=== PATIENT | male | born 1940 | race Caucasian/White ===

== ENCOUNTER 2016-11-23 11:08 | Inpatient (IN) | payer OTHER ==
[~2016-11-23] VITALS: Ht 177.8 cm; Wt 79.4 kg
[~2016-11-23 11:08] MED LIST: BACITRACIN ZINC 15 GM TOPICAL OINTMENT TP ONE; CEFAZOLIN 2 GM IVPB PREMIX 50 ML IV ONE; LIDOCAINE/EPI 1% 1:100000 20 ML VIAL INJ ONE; LR 1,000 ML IV.SOLN IV ONE; MIDAZOLAM HCL 5 MG/5 ML VIAL IVP ONE; ONDANSETRON HCL 4 MG/2 ML VIAL IVP ONE; SEVOFLURANE 15 MIN GAS INH ONE; fentaNYL CITRATE/PF 100 MCG/2 ML AMP IVP ONE
[2016-11-23 12:45] VITALS: BP_SYST 159
[2016-11-23 13:08] VITALS: BP_SYST 159
[2016-11-23] MEDS ORDERED: PRO20 PO (13:25)
[2016-11-23] MEDS ORDERED: FLU VACC QS 2017-18(36MOS+)/PF 0.5 ML/SYR SYRINGE I.M. PRN (13:30)
[2016-11-23] MEDS ORDERED: ONDANSETRON HCL 4 MG/2 ML VIAL IVP PRN (14:15)
[2016-11-23] MEDS ORDERED: HYDROcodone/ACETAMIN 5-325 MG TAB (NORCO/ VICODIN) PO PRN (14:15)
[2016-11-23] MEDS ORDERED: FLUoxetine HCL 20 MG CAPSULE (PROzac) PO SCH (14:15)
[2016-11-23] MEDS ORDERED: ACETAMINOPHEN 325 MG TABLET PO PRN (14:15)
[2016-11-23] MEDS ORDERED: MORPHINE 2 MG/ML INJ. SYRINGE IVP PRN (14:15)
[2016-11-23] MEDS: 0.45% NACL 1,000 ML IV SCH (15:40)
[2016-11-23 15:59] LABS: CKMB RELATIVE INDEX 1.9 (0.0-2.9); CREATINE KINASE MB 6.1 ng/mL (0-3.6)
[2016-11-23 16:45] VITALS: BP_SYST 146
[2016-11-23] MEDS ORDERED: BACITRACIN 1 GM OINT TP ONE (17:00)
[2016-11-23 19:57] VITALS: BP_SYST 131
[2016-11-24 02:01] VITALS: BP_SYST 113
[2016-11-24 03:35] VITALS: BP_SYST 112
[2016-11-24] MEDS: 0.45% NACL 1,000 ML IV SCH (04:38)
[2016-11-24 06:30] LABS: BILIRUBIN,URINE NEGATIVE (NEGATIVE); BLOOD, URINE NEGATIVE (NEGATIVE); CLARITY/URINE CLEAR (CLEAR); COLOR,URINE YELLOW (YELLOW); GLUCOSE,URINE NEGATIVE (NEGATIVE); KETONES,URINE NEGATIVE (NEGATIVE); LEUKOCYTE ESTERASE ,URINE NEGATIVE (NEGATIVE); NITRITE, URINE NEGATIVE (NEGATIVE); PROTEIN URINE NEGATIVE (NEGATIVE); UROBILINOGEN,URINE 0.2 (0.2-1.0)
[2016-11-24] MEDS ORDERED: LR 1,000 ML IV SCH (07:42)
[2016-11-24] MEDS ORDERED: HYDROmorphone 2 MG/ML VIAL IVP PRN ×2 (07:45)
[2016-11-24] MEDS ORDERED: HYDROmorphone 1 MG INJ. 1 MG/ML AMPUL IVP PRN (07:45)
[2016-11-24] MEDS ORDERED: ONDANSETRON HCL 4 MG/2 ML VIAL IVP PRN (07:45)
[2016-11-24] MEDS ORDERED: POLYMYXIN 500,000/BACIT.10,000 UNITS in NS IRR 1 L IR ONE (07:53)
[2016-11-24 08:00] LABS: EOSINOPHILS # (AUTO) 0.2 K/uL (0.0-0.4); EOSINOPHILS % (AUTO) 2.9 % (0.0-4.0)
[2016-11-24 08:27] LABS: BASOPHILS % (AUTO) 0.4 % (0.0-2.0); HEMATOCRIT 42.8 % (36-54); HEMOGLOBIN 14.1 g/dL (14.0-18.0); LYMPHOCYTES % (AUTO) 15.4 % (20.5-51.5); MEAN CORPUSCULAR HEMOGLOBIN 29 pg (27-31); MEAN CORPUSCULAR HGB CONC 33 % (32-36); MEAN CORPUSCULAR VOLUME 87 fL (79.0-98.0); MONOCYTES # (AUTO) 0.6 K/uL (0.0-1.0); MONOCYTES % (AUTO) 8.8 % (1.7-9.3); NEUTROPHILS # (AUTO) 4.5 K/uL (1.8-7.7); NEUTROPHILS % (AUTO) 72.5 % (40.0-70.0); PLATELET COUNT (AUTO) 154 K/uL (130-430); RED CELL DISTRIBUTION WIDTH 13.1 % (9.0-15.0); WHITE BLOOD COUNT (AUTO) 6.3 K/uL (4.8-10.8)
[2016-11-24 08:42] LABS: ANION GAP 9 (5-15); CALCIUM 8.7 mg/dL (8.4-11.0); CHLORIDE 104 mmol/L (98-107); CREATININE 1.09 mg/dL (0.55-1.30); GLUCOSE 94 mg/dL (70-99); POTASSIUM 4.1 mmol/L (3.5-5.1); SODIUM SERUM 142 mmol/L (136-145); UREA NITROGEN, BLOOD 16 mg/dL (8-21)
[2016-11-24] MEDS ORDERED: ACETAMINOPHEN/CODEINE 300 MG-30 MG TABLET PO PRN (08:45)
[2016-11-24 08:49] LABS: ALANINE AMINOTRANSFERASE 31 U/L (12-78); ALBUMIN 3.6 g/dL (3.4-4.8); ASPARTATE AMINOTRANSFERASE 29 U/L (10-37); TOTAL BILIRUBIN 0.7 mg/dL (0.0-1.0)
[2016-11-24] MEDS ORDERED: ENOXAPARIN SODIUM 40 MG/0.4 ML SYRINGE SUBCUT SCH (09:00)
[2016-11-24] MEDS ORDERED: HYDROmorphone 1 MG INJ. 1 MG/ML AMPUL ONE (09:28)
[2016-11-24 12:40] VITALS: BP_SYST 115
[2016-11-24] MEDS ORDERED: AMOXICILLIN/CLAVULANATE POTASSIUM 500 MG TABLET PO SCH (14:00)
[2016-11-24 16:30] VITALS: BP_SYST 118
[2016-11-24] MEDS: AMPICILLIN SODIUM/SULBACTAM NA 3 GM in NS 100 ML IV SCH ×2 (17:27→23:53)
[2016-11-24 19:37] VITALS: BP_SYST 117
[2016-11-25 00:23] VITALS: BP_SYST 136
[2016-11-25] MEDS: AMPICILLIN SODIUM/SULBACTAM NA 3 GM in NS 100 ML IV SCH (05:12)
[2016-11-25 05:45] VITALS: BP_SYST 132
[2016-11-25 07:11] LABS: LYMPHOCYTES # (AUTO) 1.1 K/uL (1.0-5.5); MONOCYTES # (AUTO) 0.7 K/uL (0.0-1.0)
[2016-11-25 07:18] LABS: BASOPHILS % (AUTO) 0.4 % (0.0-2.0); EOSINOPHILS % (AUTO) 0.6 % (0.0-4.0); HEMATOCRIT 38.9 % (36-54); HEMOGLOBIN 13.6 g/dL (14.0-18.0); LYMPHOCYTES % (AUTO) 14.7 % (20.5-51.5); MEAN CORPUSCULAR HEMOGLOBIN 30 pg (27-31); MEAN CORPUSCULAR HGB CONC 35 % (32-36); MEAN CORPUSCULAR VOLUME 86 fL (79.0-98.0); MONOCYTES % (AUTO) 9.6 % (1.7-9.3); NEUTROPHILS % (AUTO) 74.7 % (40.0-70.0); PLATELET COUNT (AUTO) 139 K/uL (130-430); RED BLOOD CELL COUNT(AUTO) 4.53 MIL/uL (4.2-6.2); RED CELL DISTRIBUTION WIDTH 13.1 % (9.0-15.0); WHITE BLOOD COUNT (AUTO) 7.8 K/uL (4.8-10.8)
[2016-11-25 07:35] LABS: ANION GAP 9 (5-15); CHLORIDE 108 mmol/L (98-107); CREATININE 1.01 mg/dL (0.55-1.30); GLUCOSE 104 mg/dL (70-99); POTASSIUM 4.1 mmol/L (3.5-5.1); SODIUM SERUM 143 mmol/L (136-145); UREA NITROGEN, BLOOD 15 mg/dL (8-21)
[2016-11-25 08:00] VITALS: BP_SYST 130
[2016-11-25] MEDS ORDERED: AMOXICILLIN/CLAVULANATE POTASSIUM 875 MG TABLET PO SCH (09:00)
[2016-11-25 11:09] VITALS: BP_SYST 139
[2016-11-25 12:46] VITALS: BP_SYST 137
== END 2016-11-25 11:25 | disposition home or self-care (01) | DRG 134 ==
LOC: SMU 12:52 → STU 13:05
PROVIDERS: ADMIT Internal Medicine; ATTEND Internal Medicine
PROC: 09Q0XZZ Repair Right External Ear, External Approach (ICD-10-PCS; 2016-11-24)
PROC: 0JB10ZZ Excision of Face Subcutaneous Tissue and Fascia, Open Approach (ICD-10-PCS; principal; 2016-11-24 07:30)
DX: S01.311A Laceration without foreign body of right ear, initial encounter (principal); F32.9 Major depressive disorder, single episode, unspecified; S41.111A Laceration without foreign body of right upper arm, initial encounter; S01.01XA Laceration without foreign body of scalp, initial encounter; F41.9 Anxiety disorder, unspecified; W19.XXXA Unspecified fall, initial encounter; Y93.89 Activity, other specified; Y92.89 Other specified places as the place of occurrence of the external cause; Y99.8 Other external cause status; Z82.49 Family history of ischemic heart disease and other diseases of the circulatory system
CPT/HCPCS: 36415; 73090; 80048; 80053; 81003; 82550-TC; 82553-TC; 83735-TC; 84484; 85025; 93306; J0295; J0690; J1170; J1650; J2250; J2405; J3010; J7120; Q2037